=== PATIENT | female | born 1975 | race Caucasian/White ===

== ENCOUNTER 2018-08-12 02:50 | Emergency (ER) | payer MEDICAID, OTHER ==
[~2018-08-12] VITALS: Ht 177.8 cm; Wt 63.5 kg
[2018-08-12 04:41] LABS: Basophils # (auto) 0 uL; Eosinophils # (auto) 0 uL; Lymphocytes % (auto) 11.8 % (10.0-50.0); Monocytes # (auto) 0.3 uL
[2018-08-12 04:43] LABS: Basophils % (auto) 0.3 % (0.0-2.0); Eosinophils % (auto) 0.2 % (0.0-7.0); Hematocrit 33.5 % (36.0-46.0); Hemoglobin 10.1 g/dL (12.2-16.2); Lymphocytes # (auto) 1.1 uL; Mean Corpuscular Hemoglobin 18.6 pg (28.0-32.0); Mean Corpuscular Hgb Conc. 30.1 g/dL (32.0-36.0); Mean Corpuscular Volume 61.7 fL (80.0-100.0); Monocytes % (auto) 3.1 % (0.0-12.0); Neutrophils # (auto) 7.5 uL; Neutrophils % (auto) 84.6 % (37.0-80.0); Nucleated Red Blood Cells % 0.1 %; Platelet Count (auto) 245 10^3/uL (140-450); Red Blood Cells 5.44 10^6/uL (4.0-5.20); White Blood Cell 8.9 10^3/uL (4.4-10.8)
[2018-08-12 05:43] LABS: Potassium 3.5 mmol/L (3.5-5.1)
[2018-08-12 05:47] LABS: Albumin 3.1 g/dL (3.4-5.0); Calcium 8.3 mg/dL (8.5-10.1)
[2018-08-12 05:50] LABS: BUN/Creatinine Ratio 19.4
[2018-08-12 05:53] LABS: Bilirubin, Total 0.3 mg/dL (0.2-1.0); Total Protein 7.5 g/dL (6.4-8.2)
[2018-08-12] MEDS ORDERED: PROMETHAZINE HCL 25 MG/ML 1ML IV PRN (07:15)
[2018-08-12] MEDS ORDERED: SODIUM CHLORIDE 0.9% 1,000 ML IV ONE (07:15)
[2018-08-12] MEDS ORDERED: SODIUM CHLORIDE 0.9% 500 ML IVB ONE (07:15)
[2018-08-12 08:33] LABS: Magnesium 2.1 mg/dL (1.6-2.6)
[2018-08-12 09:54] VITALS: BP 104/58
[2018-08-12 10:57] LABS: Urine Bacteria NONE SEEN /hpf (None Seen); Urine Blood Negative /uL (Negative); Urine Hyaline Cast FEW /lpf (0 - 2); Urine Mucus FEW (None Seen); Urine Specific Gravity 1.034 (1.001-1.035); Urine WBC 5 /hpf (0 - 5)
== END 2018-08-12 11:48 | disposition home or self-care (01) ==
LOC: EDBD 02:50 → ER 02:54
DX: D50.9 Iron deficiency anemia, unspecified (principal); R07.89 Other chest pain; E44.1 Mild protein-calorie malnutrition; R42 Dizziness and giddiness; F12.90 Cannabis use, unspecified, uncomplicated; Z68.20 Body mass index [BMI] 20.0-20.9, adult; Z88.0 Allergy status to penicillin
CPT/HCPCS: 36415; 80053; 81001; 83690; 83735; 84702; 85025; 93005; 96361; 96374; 99284; J2550; J7030

== ENCOUNTER 2018-09-02 22:53 | Emergency (ER) | payer MEDICAID ==
[~2018-09-02] VITALS: Ht 165.1 cm; Wt 95.3 kg
[2018-09-03 00:31] VITALS: BP 165/92
== END 2018-09-03 02:07 | disposition left against medical advice (07) ==
LOC: ER 23:00
DX: T78.40XA Allergy, unspecified, initial encounter (principal); Z53.21 Procedure and treatment not carried out due to patient leaving prior to being seen by health care provider; X58.XXXA Exposure to other specified factors, initial encounter